=== PATIENT | male | born 1965 | race Two or more races ===

== ENCOUNTER 2023-11-19 20:23 | Inpatient (IN) | payer MEDICAID, OTHER ==
[~2023-11-19] VITALS: Ht 165.1 cm; Wt 81.5 kg
[2023-11-19 21:59] LABS: Basophils # (auto) 0 10 ^3/uL (0-0.2); Eosinophils # (auto) 0.1 10 ^3/uL (0-0.8); Hematocrit 21.2 % (41.0-53.0); Lymphocytes # (auto) 0.8 10 ^3/uL (0.4-5.4); Monocytes # (auto) 0.6 10 ^3/uL (0-1.3); Nucleated Red Blood Cells % 0.1 %
[2023-11-19 22:00] VITALS: PULSE 88; RESP 13; O2SAT 100
[2023-11-19 22:01] LABS: Basophils % (auto) 0.2 % (0.0-2.0); Eosinophils % (auto) 1.1 % (0.0-7.0); Lymphocytes % (auto) 15.3 % (10.0-50.0); Mean Corpuscular Hemoglobin 24.7 pg (28.0-32.0); Mean Corpuscular Hgb Conc. 29.8 g/dL (32.0-36.0); Mean Corpuscular Volume 82.7 fL (80.0-100.0); Neutrophils # (auto) 3.5 10 ^3/uL (1.6-8.6); Neutrophils % (auto) 70.4 % (37.0-80.0); Red Blood Cells 2.56 10^6/uL (4.5-5.90)
[2023-11-19 22:07] LABS: Red Cell Distribution Width 21.2 % (11.8-14.3)
[2023-11-19 22:10] LABS: Hemoglobin 6.3 g/dL (13.5-17.5)
[2023-11-19 22:22] LABS: Alanine Aminotransferase 46 U/L (7-40); Albumin 2.5 g/dL (3.2-4.8); Alkaline Phosphatase 252 U/L (46-116); Anion Gap 9 (5-15); Aspartate Aminotransferase 59 U/L (13-40); BUN/Creatinine Ratio 14.7 (10.0-20.0); Bilirubin, Total 1.8 mg/dL (0.2-1.0); Blood Alcohol < 3.0 mg/dL (<10); Blood Urea Nitrogen 33 mg/dL (9-23); Calcium 7.8 mg/dL (8.7-10.4); Carbon Dioxide 16 mmol/L (20-30); Chloride 102 mmol/L (98-107); Potassium 4.7 mmol/L (3.5-5.1); Sodium 127 mmol/L (136-145)
[2023-11-19 22:26] LABS: Glucose 552 mg/dL (74-106); Lactic Acid w/Reflex 2.1 mmol/L (0.4-2.0)
[2023-11-19 22:35] LABS: Partial Thromboplastin Time 51.8 SEC (24.5-34.5); Prothrombin Time 40.8 sec (9.3-11.8)
[2023-11-19 22:44] LABS: INR 4.29 (0.9-1.15)
[2023-11-19] MEDS: INSULIN LANTUS (GLARGINE) 1 /0.01ml (100units/ml) SC ONE (23:25)
[2023-11-19] MEDS ORDERED: DEXTROSE (50%) 50ML SYRG IV PRN (23:30)
[2023-11-19] MEDS ORDERED: INSULIN DRIP 100 UNIT/100ML 100 ML IV SCH (23:30)
[2023-11-19] MEDS: SODIUM CHLORIDE 0.9% 3,000 ML IV ONE (23:30)
[2023-11-19] MEDS: PIPERACILLIN-TAZOB 3.375GM 100 ML IV ONE (23:43)
[2023-11-19] MEDS: SODIUM CHLORIDE 0.9% 1,000 ML IV SCH (23:45)
[2023-11-19 23:50] LABS: Base Excess -8.3 mmol/L (-2.0-2.0)
[2023-11-20] VITALS (14 sets, daily range): BP systolic 103–160; BP diastolic 52–84; PULSE 79–103; RESP 12–20; TEMP 97.4–98.2; O2SAT 98–100
[2023-11-20] MEDS ORDERED: ACCU-CHEK COMFORT CURVE STRIP VI SCH
[2023-11-20] MEDS ORDERED: MORPHINE SULFATE INJ 2 MG/ml SYRG IV PRN (00:30)
[2023-11-20] MEDS ORDERED: ONDANSETRON HCL 4 MG/2 ML VIAL IV PRN (00:30)
[2023-11-20] MEDS ORDERED: NITROGLYCERIN 0.4 MG SL TAB SL PRN ×2 (00:30→01:45)
[2023-11-20] MEDS: SODIUM BICARB 8.4% 50Meq/50ml SYR Vial IV ONE ×3 (00:58→02:14)
[2023-11-20] MEDS: CALCIUM GLUC 1,000mg/50ml-NS 50 ML IV ONE (01:16)
[2023-11-20 01:37] LABS: Magnesium 1.8 mg/dL (1.6-2.6); Phosphorus 4.2 mg/dL (2.4-5.1)
[2023-11-20] MEDS ORDERED: DEXTROSE (50%) 50ML SYRG IV PRN ×2 (01:45→10:45)
[2023-11-20] MEDS: INSULIN DRIP 100 UNIT/100ML 100 ML IV SCH (01:57)
[2023-11-20 02:13] LABS: Amphetamine Screen, Urine Neg (NEGATIVE); Barbiturate Scree,Urine Neg (NEGATIVE); Benzodiazephine Screen, Urine Neg (NEGATIVE); Cocaine Screen, Urine Neg (NEGATIVE); Opiate Scree,Urine Neg (NEGATIVE)
[2023-11-20 02:14] LABS: Cannabinoid Screen, Urine Neg (NEGATIVE); Phencyclidine Screen, Urine Neg (NEGATIVE)
[2023-11-20] MEDS: MORPHINE SULFATE INJ 2 MG/ml SYRG IV PRN (02:50)
[2023-11-20] MEDS: ACCU-CHEK COMFORT CURVE STRIP VI SCH ×2 (03:00→11:57)
[2023-11-20 03:02] LABS: Urine Bacteria FEW /hpf (None Seen); Urine Blood TRACE /uL (Negative); Urine Clarity Clear (Clear); Urine Color Yellow (Yellow); Urine Hyaline Cast FEW /lpf (0 - 2); Urine Protein, UAD Negative (Negative); Urine Urobilinogen Normal (Negative); Urine WBC 3 /hpf (0 - 3)
[2023-11-20] MEDS: SODIUM CHLORIDE 0.9% 1,000 ML IV SCH ×2 (03:30→06:00)
[2023-11-20 04:25] LABS: COVID19 ANTIGEN SOFIA FIA NEGATIVE (NEGATIVE)
[2023-11-20 09:08] LABS: % Iron Saturation 5.1 % (20-55)
[2023-11-20 09:34] LABS: Chloride 111 mmol/L (98-107); Potassium 3.7 mmol/L (3.5-5.1); Sodium 138 mmol/L (136-145)
[2023-11-20 09:35] LABS: Anion Gap 6 (5-15); Calcium 7.4 mg/dL (8.7-10.4); Carbon Dioxide 21 mmol/L (20-30)
[2023-11-20 09:40] LABS: BUN/Creatinine Ratio 19.9 (10.0-20.0); Blood Urea Nitrogen 31 mg/dL (9-23)
[2023-11-20 09:44] LABS: Basophils # (auto) 0 10 ^3/uL (0-0.2); Basophils % (auto) 0.2 % (0.0-2.0); Eosinophils # (auto) 0 10 ^3/uL (0-0.8); Eosinophils % (auto) 0.7 % (0.0-7.0); Lymphocytes # (auto) 0.5 10 ^3/uL (0.4-5.4); Monocytes # (auto) 0.5 10 ^3/uL (0-1.3); Neutrophils # (auto) 4.6 10 ^3/uL (1.6-8.6); White Blood Cell 5.6 10^3/uL (4.4-10.8)
[2023-11-20 09:46] LABS: Hematocrit 21.4 % (41.0-53.0); Lymphocytes % (auto) 8.5 % (10.0-50.0); Mean Corpuscular Hemoglobin 24.7 pg (28.0-32.0); Mean Corpuscular Hgb Conc. 30.3 g/dL (32.0-36.0); Mean Corpuscular Volume 81.6 fL (80.0-100.0); Monocytes % (auto) 8.8 % (0.0-12.0); Neutrophils % (auto) 81.8 % (37.0-80.0); Nucleated Red Blood Cells % 0.1 %; Red Blood Cells 2.62 10^6/uL (4.5-5.90)
[2023-11-20 09:55] LABS: Glucose 274 mg/dL (74-106)
[2023-11-20 09:57] LABS: Red Cell Distribution Width 21.1 % (11.8-14.3)
[2023-11-20 10:00] LABS: Hemoglobin 6.5 g/dL (13.5-17.5)
[2023-11-20] MEDS ORDERED: INSULIN LANTUS (GLARGINE) 1 /0.01ml (100units/ml) SC SCH (10:00)
[2023-11-20] MEDS: INSULIN LANTUS (GLARGINE) 1 /0.01ml (100units/ml) SC SCH ×2 (10:18→10:30)
[2023-11-20] MEDS: PANTOPRAZOLE 40 MG/10 ML VIAL INJ IV ONE (10:55)
[2023-11-20 11:09] LABS: Creatinine, Urine 82.18 mg/dL (30.0-125.0)
[2023-11-20 11:25] LABS: Folate (Folic Acid) 22.74 ng/mL (>5.38)
[2023-11-20 11:51] LABS: Rapid Influenza A Negative (Negative); Rapid Influenza B Negative (Negative)
[2023-11-20] MEDS: InsuLIN REG 1unit/0.01ml Soln (100units/ml) SC SCH (11:57)
[2023-11-20] MEDS: cefTRIAXone 1GM/50ML D5W 50 ML IV ONE (15:50)
[2023-11-20] MEDS: PHYTONADIONE (VIT K)10 MG/ML 1ML VIAL SUBCUT ONE (15:52)
[2023-11-20] MEDS: MAGNESIUM SULFATE 1GM/100ML 100 ML IV ONE (16:17)
[2023-11-20] MEDS: OCTREOTIDE ACETATE 100 MCG in SODIUM CHL 0.9% 50 ML IV ONE (17:53)
[2023-11-20] MEDS: OCTREOTIDE ACETATE 500 MCG in SODIUM CHL 0.9% 99 ML IV SCH (18:15)
[2023-11-20 21:11] LABS: INR 2.02 (0.9-1.15); Partial Thromboplastin Time 37.8 SEC (24.5-34.5); Prothrombin Time 20.3 sec (9.3-11.8)
[2023-11-20] MEDS: PANTOPRAZOLE 40 MG/10 ML VIAL INJ IV SCH (23:01)
[2023-11-21] VITALS (23 sets, daily range): BP systolic 91–151; BP diastolic 38–90; PULSE 76–103; RESP 14–26; TEMP 97.1–98.2; O2SAT 78–100
[2023-11-21 05:07] LABS: Basophils # (auto) 0 10 ^3/uL (0-0.2); Eosinophils # (auto) 0.1 10 ^3/uL (0-0.8); Eosinophils % (auto) 1.8 % (0.0-7.0); Lymphocytes # (auto) 0.6 10 ^3/uL (0.4-5.4); Monocytes # (auto) 0.5 10 ^3/uL (0-1.3); Neutrophils # (auto) 2.6 10 ^3/uL (1.6-8.6); White Blood Cell 3.9 10^3/uL (4.4-10.8)
[2023-11-21 05:09] LABS: Basophils % (auto) 0.3 % (0.0-2.0); Hematocrit 20.5 % (41.0-53.0); Lymphocytes % (auto) 16.5 % (10.0-50.0); Mean Corpuscular Hemoglobin 25.5 pg (28.0-32.0); Mean Corpuscular Hgb Conc. 31.9 g/dL (32.0-36.0); Mean Corpuscular Volume 80.2 fL (80.0-100.0); Monocytes % (auto) 13.7 % (0.0-12.0); Neutrophils % (auto) 67.7 % (37.0-80.0); Nucleated Red Blood Cells % 0.1 %; Red Blood Cells 2.56 10^6/uL (4.5-5.90); Red Cell Distribution Width 19.9 % (11.8-14.3)
[2023-11-21 05:21] LABS: Alanine Aminotransferase 42 U/L (7-40); Albumin 2.4 g/dL (3.2-4.8); Alkaline Phosphatase 143 U/L (46-116); Anion Gap 7 (5-15); Aspartate Aminotransferase 61 U/L (13-40); BUN/Creatinine Ratio 22.8 (10.0-20.0); Bilirubin, Total 1.4 mg/dL (0.2-1.0); Blood Urea Nitrogen 26 mg/dL (9-23); Calcium 7.9 mg/dL (8.7-10.4); Carbon Dioxide 21 mmol/L (20-30); Chloride 112 mmol/L (98-107); Magnesium 1.8 mg/dL (1.6-2.6); Phosphorus 2.9 mg/dL (2.4-5.1); Potassium 3.7 mmol/L (3.5-5.1); Sodium 140 mmol/L (136-145); Total Protein 4.6 g/dL (5.7-8.2)
[2023-11-21 05:24] LABS: Glucose 130 mg/dL (74-106)
[2023-11-21 05:53] LABS: Hemoglobin 6.5 g/dL (13.5-17.5)
[2023-11-21] MEDS: cefTRIAXone 1GM/50ML D5W 50 ML IV SCH (08:24)
[2023-11-21 12:48] LABS: INR 1.63 (0.9-1.15); Prothrombin Time 16.7 sec (9.3-11.8)
[2023-11-21] MEDS: LIDOCAINE VISCOUS 2% 15ML UD ONE (13:35)
[2023-11-21] MEDS ORDERED: ATOR-507 PO (15:57)
[2023-11-21] MEDS ORDERED: INSLANTI SC (15:57)
[2023-11-21] MEDS ORDERED: RIV20T PO (15:57)
[2023-11-21] MEDS ORDERED: OMEP20TA PO (15:57)
[2023-11-21] MEDS ORDERED: FOLI-119 PO (15:57)
[2023-11-21] MEDS ORDERED: FURO40TA4 PO (15:57)
[2023-11-21] MEDS ORDERED: THIA100T10 PO (15:57)
[2023-11-21] MEDS ORDERED: GABA-1308 PO (15:57)
[2023-11-21] MEDS ORDERED: SPIR100T4 PO (15:57)
[2023-11-21 15:59] LABS: Hematocrit 27.8 % (41.0-53.0); Hemoglobin 8.7 g/dL (13.5-17.5)
[2023-11-21] MEDS: IRON SUCROSE COMPLEX 100 ML IV SCH (16:21)
[2023-11-21] MEDS: SPIRONOLACTONE 25 MG TAB PO ONE (18:06)
[2023-11-21] MEDS: FUROSEMIDE 20 MG TAB PO ONE (18:07)
[2023-11-22] VITALS (9 sets, daily range): BP systolic 123–147; BP diastolic 61–86; PULSE 68–88; RESP 18–20; TEMP 97.8–98.7; O2SAT 94–100
[2023-11-22 00:24] LABS: Hematocrit 24.7 % (41.0-53.0); Hemoglobin 7.7 g/dL (13.5-17.5)
[2023-11-22] MEDS: MORPHINE SULFATE INJ 2 MG/ml SYRG IV PRN (04:23)
[2023-11-22] MEDS: PANTOPRAZOLE 40 MG TAB PO SCH (05:38)
[2023-11-22] MEDS: SPIRONOLACTONE 25 MG TAB PO SCH (09:53)
[2023-11-22] MEDS: FUROSEMIDE 20 MG TAB PO SCH (09:53)
[2023-11-22 10:24] LABS: Hemoglobin 7.9 g/dL (13.5-17.5)
[2023-11-22 10:26] LABS: Hematocrit 25.3 % (41.0-53.0)
[2023-11-22 18:45] LABS: Hematocrit 26.1 % (41.0-53.0); Hemoglobin 8.1 g/dL (13.5-17.5)
[2023-11-22] MEDS: VANCOMYCIN HCL 125 MG CAP PO ONE (20:02)
[2023-11-22] MEDS: INSULIN LANTUS (GLARGINE) 1 /0.01ml (100units/ml) SC ONE (20:22)
[2023-11-22] MEDS: VANCOMYCIN HCL 125 MG CAP PO SCH (22:10)
[2023-11-22 23:06] LABS: Basophils # (auto) 0 10 ^3/uL (0-0.2); Eosinophils # (auto) 0.1 10 ^3/uL (0-0.8); Hemoglobin 7.8 g/dL (13.5-17.5); Monocytes # (auto) 0.6 10 ^3/uL (0-1.3)
[2023-11-22 23:24] LABS: Alanine Aminotransferase 65 U/L (7-40); Alkaline Phosphatase 138 U/L (46-116); Anion Gap 8 (5-15); Aspartate Aminotransferase 97 U/L (13-40); BUN/Creatinine Ratio 17.5 (10.0-20.0); Blood Urea Nitrogen 18 mg/dL (9-23); Calcium 7.6 mg/dL (8.7-10.4); Carbon Dioxide 22 mmol/L (20-30); Chloride 104 mmol/L (98-107); Potassium 4.3 mmol/L (3.5-5.1)
[2023-11-22 23:25] LABS: Albumin 2.2 g/dL (3.2-4.8); Bilirubin, Total 1.8 mg/dL (0.2-1.0); Total Protein 4.7 g/dL (5.7-8.2)
[2023-11-22 23:39] LABS: Glucose 231 mg/dL (74-106); Sodium 134 mmol/L (136-145)
[2023-11-22 23:45] LABS: Basophils % (auto) 0.6 % (0.0-2.0); Eosinophils % (auto) 1.8 % (0.0-7.0); Hematocrit 24.8 % (41.0-53.0); Lymphocytes # (auto) 0.7 10 ^3/uL (0.4-5.4); Lymphocytes % (auto) 15.4 % (10.0-50.0); Mean Corpuscular Hemoglobin 25.5 pg (28.0-32.0); Mean Corpuscular Hgb Conc. 31.4 g/dL (32.0-36.0); Mean Corpuscular Volume 81.3 fL (80.0-100.0); Monocytes % (auto) 13.4 % (0.0-12.0); Neutrophils # (auto) 3.3 10 ^3/uL (1.6-8.6); Neutrophils % (auto) 68.8 % (37.0-80.0); Red Blood Cells 3.05 10^6/uL (4.5-5.90); Red Cell Distribution Width 19.9 % (11.8-14.3); White Blood Cell 4.8 10^3/uL (4.4-10.8)
[2023-11-23] VITALS (10 sets, daily range): BP systolic 122–141; BP diastolic 62–88; PULSE 70–93; RESP 15–20; TEMP 97.6–98.6; O2SAT 93–99
[2023-11-23 08:25] LABS: Hematocrit 24.6 % (41.0-53.0); Hemoglobin 7.8 g/dL (13.5-17.5)
[2023-11-23 08:41] LABS: Basophils # (auto) 0 10 ^3/uL (0-0.2); Basophils % (auto) 0.3 % (0.0-2.0); Eosinophils # (auto) 0.1 10 ^3/uL (0-0.8); Lymphocytes # (auto) 0.6 10 ^3/uL (0.4-5.4); Mean Corpuscular Hemoglobin 25.4 pg (28.0-32.0); White Blood Cell 5.1 10^3/uL (4.4-10.8)
[2023-11-23 08:42] LABS: Eosinophils % (auto) 1.7 % (0.0-7.0); Hematocrit 24.9 % (41.0-53.0); Hemoglobin 7.8 g/dL (13.5-17.5); Lymphocytes % (auto) 11.8 % (10.0-50.0); Mean Corpuscular Hgb Conc. 31.4 g/dL (32.0-36.0); Mean Corpuscular Volume 80.8 fL (80.0-100.0); Monocytes # (auto) 0.7 10 ^3/uL (0-1.3); Monocytes % (auto) 12.9 % (0.0-12.0); Neutrophils # (auto) 3.7 10 ^3/uL (1.6-8.6); Neutrophils % (auto) 73.3 % (37.0-80.0); Nucleated Red Blood Cells % 0.1 %; Red Blood Cells 3.08 10^6/uL (4.5-5.90)
[2023-11-23 08:51] LABS: Alanine Aminotransferase 70 U/L (7-40); Albumin 2.3 g/dL (3.2-4.8); Alkaline Phosphatase 146 U/L (46-116); Anion Gap 2 (5-15); Aspartate Aminotransferase 99 U/L (13-40); BUN/Creatinine Ratio 18.2 (10.0-20.0); Blood Urea Nitrogen 16 mg/dL (9-23); Calcium 7.8 mg/dL (8.7-10.4); Carbon Dioxide 23 mmol/L (20-30); Chloride 108 mmol/L (98-107); Glucose 159 mg/dL (74-106); Potassium 4.2 mmol/L (3.5-5.1); Sodium 133 mmol/L (136-145)
[2023-11-23 08:52] LABS: Bilirubin, Total 1.9 mg/dL (0.2-1.0); Total Protein 4.7 g/dL (5.7-8.2)
[2023-11-23] MEDS: SPIRONOLACTONE 25 MG TAB PO SCH (10:16)
[2023-11-23] MEDS: FUROSEMIDE 20 MG TAB PO SCH (10:17)
[2023-11-23] MEDS: INSULIN LANTUS (GLARGINE) 1 /0.01ml (100units/ml) SC SCH (10:17)
[2023-11-23] MEDS: FLORASTOR (S. BOULARDII) 250 MG CAP PO SCH (10:21)
[2023-11-23] MEDS ORDERED: SACC250C PO (12:03)
[2023-11-23] MEDS ORDERED: FURO1TAB31 PO (12:03)
[2023-11-23] MEDS ORDERED: SPIR100T4 PO (12:03)
[2023-11-23] MEDS ORDERED: VANC125C3 PO (12:03)
[2023-11-23 13:20] LABS: Hematocrit 26.1 % (41.0-53.0); Hemoglobin 8.2 g/dL (13.5-17.5)
[2023-11-23 17:57] LABS: Hemoglobin 7.9 g/dL (13.5-17.5)
[2023-11-24] VITALS (7 sets, daily range): BP systolic 107–137; BP diastolic 53–76; PULSE 74–92; RESP 17–20; TEMP 98.1–98.3; O2SAT 97–100
[2023-11-24 00:50] LABS: Hematocrit 25.2 % (41.0-53.0); Hemoglobin 8.2 g/dL (13.5-17.5)
[2023-11-24 06:18] LABS: Basophils # (auto) 0 10 ^3/uL (0-0.2); Eosinophils # (auto) 0.1 10 ^3/uL (0-0.8); Hemoglobin 7.9 g/dL (13.5-17.5); Lymphocytes # (auto) 0.8 10 ^3/uL (0.4-5.4); Monocytes # (auto) 0.6 10 ^3/uL (0-1.3); Nucleated Red Blood Cells % 0.1 %
[2023-11-24 06:22] LABS: Basophils % (auto) 0.4 % (0.0-2.0); Eosinophils % (auto) 1.5 % (0.0-7.0); Hematocrit 24.3 % (41.0-53.0); Lymphocytes % (auto) 13.8 % (10.0-50.0); Mean Corpuscular Hemoglobin 26.5 pg (28.0-32.0); Mean Corpuscular Hgb Conc. 32.5 g/dL (32.0-36.0); Mean Corpuscular Volume 81.5 fL (80.0-100.0); Monocytes % (auto) 11.5 % (0.0-12.0); Neutrophils % (auto) 72.8 % (37.0-80.0); Red Blood Cells 2.98 10^6/uL (4.5-5.90); Red Cell Distribution Width 20.1 % (11.8-14.3); White Blood Cell 5.5 10^3/uL (4.4-10.8)
[2023-11-24 06:34] LABS: Alanine Aminotransferase 68 U/L (7-40); Albumin 2.2 g/dL (3.2-4.8); Alkaline Phosphatase 152 U/L (46-116); Anion Gap 6 (5-15); Aspartate Aminotransferase 87 U/L (13-40); BUN/Creatinine Ratio 17.4 (10.0-20.0); Bilirubin, Total 1.8 mg/dL (0.2-1.0); Blood Urea Nitrogen 15 mg/dL (9-23); Calcium 7.7 mg/dL (8.7-10.4); Carbon Dioxide 23 mmol/L (20-30); Chloride 103 mmol/L (98-107); Glucose 221 mg/dL (74-106); Sodium 132 mmol/L (136-145); Total Protein 4.7 g/dL (5.7-8.2)
[2023-11-24] MEDS: SPIRONOLACTONE 25 MG TAB PO ONE (11:15)
[2023-11-24] MEDS: FUROSEMIDE 40 MG TAB PO ONE (11:15)
[2023-11-25] VITALS (7 sets, daily range): BP systolic 105–133; BP diastolic 44–159; PULSE 83–104; RESP 17–20; TEMP 97.6–98.2; O2SAT 96–97
[2023-11-25] MEDS: FUROSEMIDE 40 MG TAB PO SCH (09:21)
[2023-11-25] MEDS: SPIRONOLACTONE 25 MG TAB PO SCH (09:21)
[2023-11-26] VITALS (7 sets, daily range): BP systolic 103–140; BP diastolic 46–86; PULSE 62–94; RESP 16–20; TEMP 97.8–98.8; O2SAT 93–98
[2023-11-26] MEDS ORDERED: DEXTROSE (50%) 50ML SYRG IV PRN (21:00)
[2023-11-27] VITALS (8 sets, daily range): BP systolic 109–125; BP diastolic 49–85; PULSE 73–95; RESP 18–19; TEMP 98–98.7; O2SAT 95–99
[2023-11-27] MEDS: ACCU-CHEK COMFORT CURVE STRIP VI SCH
[2023-11-27] MEDS: InsuLIN REG 1unit/0.01ml Soln (100units/ml) SC SCH
[2023-11-27 05:31] LABS: Basophils # (auto) 0 10 ^3/uL (0-0.2); Eosinophils # (auto) 0 10 ^3/uL (0-0.8); Lymphocytes # (auto) 0.6 10 ^3/uL (0.4-5.4); Monocytes # (auto) 0.6 10 ^3/uL (0-1.3); Neutrophils # (auto) 2.4 10 ^3/uL (1.6-8.6); White Blood Cell 3.6 10^3/uL (4.4-10.8)
[2023-11-27] MEDS: ONDANSETRON HCL 4 MG/2 ML VIAL IV PRN (05:31)
[2023-11-27 05:34] LABS: Basophils % (auto) 0.4 % (0.0-2.0); Eosinophils % (auto) 0.8 % (0.0-7.0); Hematocrit 23.2 % (41.0-53.0); Hemoglobin 7.5 g/dL (13.5-17.5); Lymphocytes % (auto) 17.6 % (10.0-50.0); Mean Corpuscular Hemoglobin 27.4 pg (28.0-32.0); Mean Corpuscular Hgb Conc. 32.2 g/dL (32.0-36.0); Monocytes % (auto) 15.8 % (0.0-12.0); Neutrophils % (auto) 65.4 % (37.0-80.0); Red Blood Cells 2.73 10^6/uL (4.5-5.90)
[2023-11-27 05:37] LABS: Red Cell Distribution Width 20.6 % (11.8-14.3)
[2023-11-27 05:48] LABS: Alanine Aminotransferase 67 U/L (7-40); Alkaline Phosphatase 173 U/L (46-116); Anion Gap 6 (5-15); Blood Urea Nitrogen 18 mg/dL (9-23); Calcium 7.7 mg/dL (8.7-10.4); Carbon Dioxide 24 mmol/L (20-30); Chloride 104 mmol/L (98-107); Glucose 161 mg/dL (74-106); Potassium 4.5 mmol/L (3.5-5.1); Sodium 134 mmol/L (136-145)
[2023-11-27 05:49] LABS: Albumin 2.2 g/dL (3.2-4.8); Aspartate Aminotransferase 105 U/L (13-40); Bilirubin, Total 1.3 mg/dL (0.2-1.0); Total Protein 4.7 g/dL (5.7-8.2)
[2023-11-27] MEDS: INSULIN LANTUS (GLARGINE) 1 /0.01ml (100units/ml) SC SCH (10:00)
[2023-11-28] VITALS (7 sets, daily range): BP systolic 113–137; BP diastolic 61–80; PULSE 76–95; RESP 17–19; TEMP 97.7–98.5; O2SAT 93–99
[2023-11-28 05:38] LABS: Basophils # (auto) 0 10 ^3/uL (0-0.2); Basophils % (auto) 0.6 % (0.0-2.0); Eosinophils # (auto) 0 10 ^3/uL (0-0.8); Eosinophils % (auto) 0.8 % (0.0-7.0); Hematocrit 27.2 % (41.0-53.0); Hemoglobin 8.8 g/dL (13.5-17.5); Lymphocytes # (auto) 0.7 10 ^3/uL (0.4-5.4); Lymphocytes % (auto) 22.4 % (10.0-50.0); Mean Corpuscular Hgb Conc. 32.4 g/dL (32.0-36.0); Mean Corpuscular Volume 86.5 fL (80.0-100.0); Monocytes # (auto) 0.4 10 ^3/uL (0-1.3); Monocytes % (auto) 12.9 % (0.0-12.0); Neutrophils # (auto) 2.1 10 ^3/uL (1.6-8.6); Neutrophils % (auto) 63.3 % (37.0-80.0); Nucleated Red Blood Cells % 0.1 %; Red Blood Cells 3.14 10^6/uL (4.5-5.90); White Blood Cell 3.3 10^3/uL (4.4-10.8)
[2023-11-28 05:40] LABS: Red Cell Distribution Width 20.9 % (11.8-14.3)
[2023-11-28 05:52] LABS: Alanine Aminotransferase 73 U/L (7-40); Albumin 2.5 g/dL (3.2-4.8); Alkaline Phosphatase 210 U/L (46-116); Anion Gap 7 (5-15); Aspartate Aminotransferase 107 U/L (13-40); BUN/Creatinine Ratio 22.2 (10.0-20.0); Bilirubin, Total 1.4 mg/dL (0.2-1.0); Blood Urea Nitrogen 22 mg/dL (9-23); Calcium 7.9 mg/dL (8.7-10.4); Carbon Dioxide 24 mmol/L (20-30); Chloride 102 mmol/L (98-107); Glucose 179 mg/dL (74-106); Sodium 133 mmol/L (136-145); Total Protein 5.5 g/dL (5.7-8.2)
[2023-11-28] MEDS: CHOLESTYRAMINE 4 GM POWDER GT SCH (11:31)
[2023-11-28] MEDS: INSULIN LANTUS (GLARGINE) 1 /0.01ml (100units/ml) SC SCH (21:54)
[2023-11-29 01:00] VITALS: BP 110/63; PULSE 77; RESP 18; TEMP 98.5; O2SAT 96
[2023-11-29 05:00] VITALS: BP 111/58; PULSE 83; RESP 18; TEMP 98.5; O2SAT 96
[2023-11-29 06:05] LABS: Basophils # (auto) 0 10 ^3/uL (0-0.2); Basophils % (auto) 0.6 % (0.0-2.0); Eosinophils # (auto) 0 10 ^3/uL (0-0.8); Hematocrit 25.1 % (41.0-53.0); Hemoglobin 8.1 g/dL (13.5-17.5); Lymphocytes # (auto) 0.6 10 ^3/uL (0.4-5.4); Mean Corpuscular Hemoglobin 28.1 pg (28.0-32.0); Mean Corpuscular Hgb Conc. 32.2 g/dL (32.0-36.0); Monocytes # (auto) 0.4 10 ^3/uL (0-1.3)
[2023-11-29 06:09] LABS: Eosinophils % (auto) 0.9 % (0.0-7.0); Lymphocytes % (auto) 19.3 % (10.0-50.0); Mean Corpuscular Volume 87.4 fL (80.0-100.0); Monocytes % (auto) 13.6 % (0.0-12.0); Neutrophils % (auto) 65.6 % (37.0-80.0); Nucleated Red Blood Cells % 0.2 %; Red Blood Cells 2.88 10^6/uL (4.5-5.90)
[2023-11-29 06:16] LABS: Alanine Aminotransferase 63 U/L (7-40); Albumin 2.4 g/dL (3.2-4.8); Alkaline Phosphatase 197 U/L (46-116); Anion Gap 6 (5-15); Aspartate Aminotransferase 80 U/L (13-40); BUN/Creatinine Ratio 25.3 (10.0-20.0); Bilirubin, Total 1.3 mg/dL (0.2-1.0); Blood Urea Nitrogen 23 mg/dL (9-23); Carbon Dioxide 24 mmol/L (20-30); Chloride 105 mmol/L (98-107); Glucose 156 mg/dL (74-106); Potassium 5.1 mmol/L (3.5-5.1); Sodium 135 mmol/L (136-145); Total Protein 5.1 g/dL (5.7-8.2)
[2023-11-29 06:26] LABS: Red Cell Distribution Width 28.3 % (11.8-14.3)
[2023-11-29 07:56] LABS: Anisocytosis Slight; Platelet Estimate Decreased
[2023-11-29 08:00] VITALS: PULSE 83; RESP 18; O2SAT 96
[2023-11-29 09:00] VITALS: BP 132/83; PULSE 97; RESP 14; TEMP 98.1; O2SAT 98
== END 2023-11-29 10:50 | disposition home or self-care (01) | DRG 248 ==
LOC: ER 20:23 → TELE 11-20 00:32 → DOU IN ICU 11-20 21:40 → TELE-EAST 11-21 19:40 → EAST 11-25 01:44
PROVIDERS: ADMIT Internal Medicine Pulmonary Disease; ATTEND Anesthesiology
PROC: 30233K1 Transfusion of Nonautologous Frozen Plasma into Peripheral Vein, Percutaneous Approach (ICD-10-PCS; 2023-11-20)
PROC: 30233N1 Transfusion of Nonautologous Red Blood Cells into Peripheral Vein, Percutaneous Approach (ICD-10-PCS; 2023-11-20)
PROC: 0DB68ZX Excision of Stomach, Via Natural or Artificial Opening Endoscopic, Diagnostic (ICD-10-PCS; 2023-11-21)
PROC: 0DB98ZX Excision of Duodenum, Via Natural or Artificial Opening Endoscopic, Diagnostic (ICD-10-PCS; principal; 2023-11-21 13:39)
DX: A04.72 Enterocolitis due to Clostridium difficile, not specified as recurrent (principal); I81 Portal vein thrombosis; G93.41 Metabolic encephalopathy; E11.10 Type 2 diabetes mellitus with ketoacidosis without coma; I85.11 Secondary esophageal varices with bleeding; K76.82 Hepatic encephalopathy; K74.60 Unspecified cirrhosis of liver; K76.6 Portal hypertension; K31.9 Disease of stomach and duodenum, unspecified; D68.9 Coagulation defect, unspecified; D69.6 Thrombocytopenia, unspecified; E83.51 Hypocalcemia; N17.9 Acute kidney failure, unspecified; M62.82 Rhabdomyolysis; E86.0 Dehydration; I12.9 Hypertensive chronic kidney disease with stage 1 through stage 4 chronic kidney disease, or unspecified chronic kidney disease; K44.9 Diaphragmatic hernia without obstruction or gangrene; N18.9 Chronic kidney disease, unspecified; R18.8 Other ascites; B19.20 Unspecified viral hepatitis C without hepatic coma; E78.5 Hyperlipidemia, unspecified; D64.9 Anemia, unspecified; Z20.822 Contact with and (suspected) exposure to COVID-19
CPT/HCPCS: 36415; 36430; 36600; 70450; 71045; 74018; 74176; 76705; 80048; 80053; 80307; 80320; 81001; 82010; 82140; 82270; 82550; 82570; 82607; 82728; 82746; 82805; 82962; 83036; 83540; 83550; 83605; 83735; 83930; 83986; 84100; 84300; 84443; 84484; 85014; 85018; 85025; 85048; 85384; 85610; 85730; 86703; 86803; 86850; 86900; 86901; 86920; 87040; 87045; 87081; 87086; 87340; 87426; 87427; 87493; 87804; 93005; 93306; 93886; 96361; 96365; 96366; 96372; 96375; 99291; 99292; G0378; J1756; J1815; J2405; J2470; J2543; J3430